=== PATIENT | male | born 1965 | race Caucasian/White ===

== ENCOUNTER → 2017-05-09 | Outpatient (CLI) | payer OTHER ==
[~2017-05-09] MED LIST: ASPIR 8181 M1 PO; ELIQUIS5 MG PO; TYLENOL325 MG PO
== END ==
LOC: RAD 08:52
DX: R05 Cough (principal)

== ENCOUNTER → 2020-09-27 | Outpatient (CLI) | payer OTHER | LOC: CAT 07:59 | PROVIDERS: ATTEND Internal Medicine Cardiovascular Disease | DX: Z13.6 Encounter for screening for cardiovascular disorders (principal); E78.00 Pure hypercholesterolemia, unspecified; I25.10 Atherosclerotic heart disease of native coronary artery without angina pectoris ==

== ENCOUNTER → 2021-07-30 | Outpatient (CLI) | payer OTHER | LOC: SJCVCIMAG 08:00 | PROVIDERS: ATTEND Internal Medicine Cardiovascular Disease | DX: I37.1 Nonrheumatic pulmonary valve insufficiency (principal); R93.1 Abnormal findings on diagnostic imaging of heart and coronary circulation; E78.00 Pure hypercholesterolemia, unspecified; Z86.718 Personal history of other venous thrombosis and embolism; Z86.711 Personal history of pulmonary embolism; Z72.89 Other problems related to lifestyle; Z79.899 Other long term (current) drug therapy ==